=== PATIENT | female | born 1985 | race Caucasian/White ===

== ENCOUNTER 2017-07-06 11:53 | Emergency (ER) | payer MEDICAID ==
[~2017-07-06] VITALS: Ht 165.1 cm; Wt 68.6 kg
[2017-07-06] MEDS ORDERED: LIDOCAINE 1%, 20ML SQ ONE (12:30)
[2017-07-06] MEDS ORDERED: SODIUM CHLORIDE 0.9% 1,000ML IVBOLUS ONE (12:30)
[2017-07-06] MEDS ORDERED: SODIUM CHLORIDE FLUSH 10ML SYR IVF ONE (12:30)
[2017-07-06] MEDS ORDERED: HYDROmorphone 1 MG/ML, 1ML IVPush PRN (12:30)
[2017-07-06] MEDS ORDERED: LIDOCAINE 1%, 20ML ONE (12:30)
[2017-07-06] MEDS ORDERED: CLINDAMYCIN PMX 900MG/50ML 50 ML IVPB ONE (12:30)
[2017-07-06] MEDS ORDERED: ONDANSETRON 2MG/ML, 2ML IVPush ONE (12:30)
[2017-07-06] MEDS ORDERED: HYDROmorphone 2 MG/ML, 1ML ONE (12:31)
[2017-07-06] MEDS ORDERED: CLINDAMYCIN PMX 900MG/50ML 50 ML ONE (12:31)
[2017-07-06] MEDS ORDERED: ONDANSETRON 2MG/ML, 2ML ONE (12:31)
[2017-07-06 13:00] LABS: HEMATOCRIT 37.7 % (34.6-47.8); HEMOGLOBIN 12.9 g/dL (11.7-16.4); WHITE BLOOD COUNT 16.4 x10^3/uL (3.4-10)
[2017-07-06 13:08] LABS: BLOOD UREA NITROGEN 8 mg/dL (7-18)
[2017-07-06 14:19] VITALS: BP 119/81
== END 2017-07-06 15:00 | disposition home or self-care (01) ==
LOC: ED 14:33
DX: L02.414 Cutaneous abscess of left upper limb (principal)
CPT/HCPCS: 10060; 36415; 80048; 82040; 83605; 84145; 85025; 87040; 93005; 96361; 96365; 96375; 99285; J1170; J2405; J7030

== ENCOUNTER 2019-10-12 03:09 | Emergency (ER) | payer MEDICAID ==
[~2019-10-12] VITALS: Ht 165.1 cm; Wt 65.0 kg
--- NOTE | 2019-10-12 03:49 | NUR ---
Patient presents to ER c/o SOB and cough. Patient states this has been going on for a few years but it has been getting worse lately. She is unable to do any physical activity without becoming SOB. Patient has an occasional cough; she coughs up white, frothy sputum sometimes and yellow sputum other times. Patient is in NAD. Respirations even and unlabored.
[2019-10-12] MEDS ORDERED: ALBUTEROL 0.5%, 20ML NPPB SCH (04:00)
[2019-10-12] MEDS ORDERED: ALBUTEROL SULFATE 2.5 MG/3 ML ONE (04:08)
[2019-10-12] MEDS ORDERED: ALBUTEROL 0.5%, 20ML ONE (04:23)
[2019-10-12 04:41] LABS: MEAN CORPUSCULAR HEMOGLOBIN 27.8 pg (27.0-34.8); MEAN CORPUSCULAR HGB CONC 33.6 g/dL (32.4-35.8); MEAN CORPUSCULAR VOLUME 82.8 fL (80-100); MEAN PLATELET VOLUME 8.2 fL (7.4-10.4); PLATELET COUNT 338 x10^3/uL (130-400); RED CELL DISTRIBUTION WIDTH 13.9 % (9.6-15.2)
[2019-10-12 04:55] LABS: ANION GAP 5 mmol/L (5-15); CALCIUM 8.2 mg/dL (8.5-10.1); CHLORIDE 107 mmol/L (98-107)
[2019-10-12 05:05] LABS: MD YES
[2019-10-12 05:10] LABS: BASOS#(MANUAL) 0.11 x10^3/uL (0-0.1); BASOS% (MANUAL) 1 % (0-1); EOS#(MANUAL) 1.58 x10^3/uL (0.0-0.4); EOS% (MANUAL) 14 % (1-7); LYMPH#(MANUAL) 2.03 x10^3/uL (1-3.4); LYMPHS% (MANUAL) 18 % (22-44); MONOS#(MANUAL) 0.68 x10^3/uL (0.3-2.7); MONOS% (MANUAL) 6 % (2-9); REACTIVE LYMPHS # (MANUAL) 0.79 x10^3/uL (0-0); REACTIVE LYMPHS % (MANUAL) 7 % (0-0); SEGS% (MANUAL) 54 % (42-75)
[2019-10-12 05:11] LABS: <PLATELET ESTIMATE> ADEQUATE; <PLT MORPHOLOGY> NORMAL PLT MORPH; <RBC MORPHOLOGY> NORMAL
[2019-10-12 06:04] VITALS: BP 128/72
--- NOTE | 2019-10-12 06:04 | NUR ---
Discharge instructions given. All questions and concerns addressed. Patient ambulatory with a steady gait. Belongings with patient.
== END 2019-10-12 06:05 | disposition home or self-care (01) ==
LOC: ED 05:45
DX: J44.1 Chronic obstructive pulmonary disease with (acute) exacerbation (principal); R00.0 Tachycardia, unspecified; R05 Cough; Z87.891 Personal history of nicotine dependence
CPT/HCPCS: 36415; 71045; 80048; 82040; 85025; 93005; 94640; 99285; J7512

== ENCOUNTER 2020-01-03 10:26 | Emergency (ER) | payer MEDICAID ==
[~2020-01-03] VITALS: Ht 165.1 cm; Wt 68.5 kg
--- NOTE | 2020-01-03 10:49 | NUR ---
34 Y/O FEMALE PRESENTS TO ED WITH C/O SOB. PER PT "I RAN OUT OF MY INHALER AND ALBUTEROL FOR MY NEBULIZER. IT'S BEEN A WHILE SINCE I'VE HAD THEM. I DON'T HAVE A PCP AND THE [facility] OFFICE NEVER CALLED ME BACK." RECOMMENDED PT TO CALL PULM OFFICE AGAIN. NO C/O N/V/D, TRAUMA, SYNCOPE, CP. PT PLACED ON CONT PULSE OX, NIBP
[2020-01-03] MEDS ORDERED: ALBUTEROL/IPRATROPIUM 2.5MG/0.5MG, 3 ML ONE ×2 (11:02→12:30)
[2020-01-03] MEDS ORDERED: MAGNESIUM SULFATE 1 GM in SODIUM CHLORIDE 0.9% 50 ML IV ONE (11:15)
--- NOTE | 2020-01-03 11:19 | NUR ---
PIV ESTABLISHED. PT TOELRATED WITH NO COMPLICATIONS. LABS OBTAINED
[2020-01-03] MEDS: ALBUTEROL/IPRATROPIUM 2.5MG/0.5MG, 3 ML NPPB SCH ×2 (11:20→12:33)
[2020-01-03] MEDS ORDERED: MAGNESIUM SULFATE/D5W 100 ML IVPB ONE (11:30)
[2020-01-03 11:32] LABS: BASOPHILS # (AUTO) 0.05 x10^3/uL (0-0.1); BASOPHILS % (AUTO) 1 % (0-1); EOSINOPHILS % (AUTO) 13 % (1-7); LYMPHOCYTES # (AUTO) 3.26 x10^3/uL (1-3.4); LYMPHOCYTES % (AUTO) 32 % (22-44); MD NO; MEAN CORPUSCULAR HEMOGLOBIN 27.7 pg (27.0-34.8); MEAN CORPUSCULAR HGB CONC 32.4 g/dL (32.4-35.8); MEAN CORPUSCULAR VOLUME 85.4 fL (80-100); MEAN PLATELET VOLUME 8.3 fL (7.4-10.4); MONOCYTES # (AUTO) 0.83 x10^3/uL (0.2-0.8); MONOCYTES % (AUTO) 8 % (2-9); NEUTROPHILS # (AUTO) 4.71 x10^3/uL (1.8-6.8); NEUTROPHILS % (AUTO) 46 % (42-75); PLATELET COUNT 334 x10^3/uL (130-400); RED BLOOD COUNT 5.35 x10^6/uL (3.82-5.3); RED CELL DISTRIBUTION WIDTH 13.4 % (9.6-15.2)
[2020-01-03 11:36] LABS: ALBUMIN 3.6 g/dL (3.4-5.0); ANION GAP 5 mmol/L (5-15); CALCIUM 8.5 mg/dL (8.5-10.1); CHLORIDE 104 mmol/L (98-107); CREATININE 0.97 mg/dL (0.55-1.02)
--- NOTE | 2020-01-03 11:38 | NUR ---
bedside report to TAMARA Benitez.
[2020-01-03 11:41] LABS: ALANINE AMINOTRANSFERASE 18 U/L (12-78); ALKALINE PHOSPHATASE 130 U/L (45-117); BILIRUBIN,TOTAL 0.4 mg/dL (0.2-1.0); TOTAL PROTEIN 8.3 g/dL (6.4-8.2); TROPONIN I < 0.015 ng/mL (0.000-0.045)
--- NOTE | 2020-01-03 11:54 | NUR ---
PT LAYING IN BED, EYES CLOSED, RESPIRATIONS EVEN AND UNLABORED. PT AROUSED TO NAME. PT STATES SHE IS TIRED FROM NOT BEING ABLE TO BREATH WELL. ERP TO BEDSIDE. PT STATES SHE IS FEELING "A LOT BETTER."
--- NOTE | 2020-01-03 12:40 | NUR ---
CONFIRMED SECOND DUONEB TREATMENT WITH ERP. PT DOES NOT KNOW BASELINE ROOM AIR SATURATION.
--- NOTE | 2020-01-03 13:04 | NUR ---
PT AMBULATORY TO BATHROOM, STEADY GAIT.
[2020-01-03 13:15] VITALS: BP 114/81
== END 2020-01-03 13:17 | disposition home or self-care (01) ==
LOC: ED 11:43
DX: J44.1 Chronic obstructive pulmonary disease with (acute) exacerbation (principal); J98.01 Acute bronchospasm; R00.0 Tachycardia, unspecified; R06.00 Dyspnea, unspecified; Z87.891 Personal history of nicotine dependence
CPT/HCPCS: 36415; 71045; 80053; 83880; 84484; 85025; 93005; 94640; 96365; 99285; J7512

== ENCOUNTER 2020-05-08 02:34 | Emergency (ER) | payer MEDICAID ==
[~2020-05-08] VITALS: Ht 165.1 cm; Wt 64.0 kg
--- NOTE | 2020-05-08 02:55 | NUR ---
34 year old female to ED for COPD exacerbation. She states she has been out of her ventolin for a while. She endorses SOB x 2 weeks. She denies chest pain. fever, chills, nausea, vomiting, or diarrhea.
[2020-05-08] MEDS ORDERED: ALBUTEROL/IPRATROPIUM 2.5MG/0.5MG, 3 ML ONE (03:12)
[2020-05-08] MEDS ORDERED: ALBUTEROL/IPRATROPIUM 2.5MG/0.5MG, 3 ML NPPB ONE (03:30)
[2020-05-08 04:20] VITALS: BP 124/72
== END 2020-05-08 04:23 | disposition home or self-care (01) ==
LOC: ED 03:50
DX: J98.01 Acute bronchospasm (principal); I49.3 Ventricular premature depolarization; R00.0 Tachycardia, unspecified; I51.7 Cardiomegaly; J44.9 Chronic obstructive pulmonary disease, unspecified; Z87.891 Personal history of nicotine dependence
CPT/HCPCS: 71045; 93005; 99283; J7512

== ENCOUNTER 2020-06-24 18:31 | Emergency (ER) | payer MEDICAID ==
[~2020-06-24] VITALS: Ht 165.1 cm; Wt 66.9 kg
--- NOTE | 2020-06-24 19:00 | NUR ---
C/O SOB FOR ABOUT 4 DAYS, REPORTS HX COPD, AND OUT OF INHALER AND STEROIDS. PLACED ON CARDIAC AND VITALS MONITORS, CALL LIGHT PLACED WITHIN REACH.
[2020-06-24] MEDS ORDERED: methylPREDNISolone SOD SUCC 125 MG/2 ML IV ONE (19:30)
[2020-06-24] MEDS ORDERED: SODIUM CHLORIDE 0.9% 1,000 ML IV ONE (19:30)
[2020-06-24] MEDS ORDERED: methylPREDNISolone SOD SUCC 125 MG/2 ML ONE (19:31)
--- NOTE | 2020-06-24 20:10 | NUR ---
PT REFUSING IV.
[2020-06-24] MEDS ORDERED: ALBUTEROL/IPRATROPIUM 2.5MG/0.5MG, 3 ML NEB ONE (20:30)
[2020-06-24] MEDS ORDERED: ALBUTEROL/IPRATROPIUM 2.5MG/0.5MG, 3 ML ONE (20:31)
[2020-06-24 21:41] VITALS: BP 118/70
== END 2020-06-24 21:43 | disposition home or self-care (01) ==
LOC: ED 19:05
DX: J44.1 Chronic obstructive pulmonary disease with (acute) exacerbation (principal); Z20.828 Contact with and (suspected) exposure to other viral communicable diseases; R06.02 Shortness of breath; R00.0 Tachycardia, unspecified; R05 Cough; R06.00 Dyspnea, unspecified; Z87.891 Personal history of nicotine dependence
CPT/HCPCS: 71045; 87635; 93005; 94640; 99285; J7512